=== PATIENT | female | born 1950 | race Caucasian/White ===

== ENCOUNTER → 2016-10-02 | Outpatient (CLI) | payer OTHER ==
[~2016-10-02] MED LIST: ASPI81TA82 PO; CARB200T16 PO; CHOL1CAP6 PO; FEXO180 PO; LISI-360 PO; SIMV10 PO; VITA500C PO; [UNRECOGNIZED DRUG - CODE] PO
[2016-10-02 12:46] LABS: HEMATOCRIT 40.4 % (35.0-46.0); MEAN CELL VOLUME 91.3 FL (80.0-100.0); MEAN CORPUSCULAR HEMOGLOBIN 30.6 PG (27.0-34.0); MEAN CORPUSCULAR HGB CONC 33.5 % (32.0-36.0); PLATELET COUNT 274 TH/MM3 (150-450); RED BLOOD COUNT 4.42 MIL/MM3 (4.00-5.30); RED CELL DISTRIBUTION WIDTH 12.7 % (11.6-17.2); REVIEW FLAG FINAL
[2016-10-02 13:18] LABS: ALKALINE PHOSPHATASE 74 U/L (45-117); ALT (GPT) 19 U/L (10-53); ANION GAP 8 MEQ/L (5-15); AST (GOT) 19 U/L (15-37); BICARBONATE 29.2 MEQ/L (21.0-32.0); BLOOD UREA NITROGEN 11 MG/DL (7-18); CHLORIDE 104 MEQ/L (98-107); GLOMERULAR FILTRATION RATE 95 ML/MIN (>89); GLUCOSE,FASTING 90 MG/DL (74-99); HDL CHOLESTEROL 71.7 MG/DL (40.0-60.0); LDL CHOLESTEROL 115 MG/DL (0-99); POTASSIUM 4.6 MEQ/L (3.5-5.1); SODIUM (NA) 141 MEQ/L (136-145); TOTAL BILIRUBIN ADULT 0.3 MG/DL (0.2-1.0)
== END ==
LOC: PLAB 09:20
PROVIDERS: ATTEND Family Medicine
DX: I10 Essential (primary) hypertension (principal); E78.5 Hyperlipidemia, unspecified; G50.8 Other disorders of trigeminal nerve; I49.1 Atrial premature depolarization
CPT/HCPCS: 80053; 80061; 80156; 84443; 85027

== ENCOUNTER → 2017-02-19 | Outpatient (CLI) | payer OTHER ==
[2017-02-19 13:04] LABS: AUTOMATED NEUTROPHIL # 3.6 TH/MM3 (1.8-7.7); BASOPHIL % 0.5 % (0.0-2.0); EOSINOPHIL # 0.1 TH/MM3 (0-0.4); EOSINOPHIL % 1.4 % (0.0-4.0); HEMATOCRIT 40.2 % (35.0-46.0); HEMO FLAGS DIFF FINAL; LYMPH % 29.3 % (9.0-44.0); LYMPHOCYTE # 1.7 TH/MM3 (1.0-4.8); MEAN CELL VOLUME 91.4 FL (80.0-100.0); MEAN CORPUSCULAR HEMOGLOBIN 30.4 PG (27.0-34.0); MEAN CORPUSCULAR HGB CONC 33.3 % (32.0-36.0); MONO % 6.6 % (0.0-8.0); NEUT % 62.2 % (16.0-70.0); PLATELET COUNT 264 TH/MM3 (150-450); RED CELL DISTRIBUTION WIDTH 12.9 % (11.6-17.2); WHITE BLOOD COUNT 5.9 TH/MM3 (4.0-11.0)
[2017-02-19 13:29] LABS: ALKALINE PHOSPHATASE 76 U/L (45-117); ALT (GPT) 24 U/L (10-53); ANION GAP 7 MEQ/L (5-15); AST (GOT) 22 U/L (15-37); BICARBONATE 26.9 MEQ/L (21.0-32.0); BLOOD UREA NITROGEN 14 MG/DL (7-18); CHLORIDE 105 MEQ/L (98-107); GLOMERULAR FILTRATION RATE 87 ML/MIN (>89); GLUCOSE,FASTING 89 MG/DL (74-99); HDL CHOLESTEROL 69.6 MG/DL (40.0-60.0); LDL CHOLESTEROL 115 MG/DL (0-99); POTASSIUM 4.2 MEQ/L (3.5-5.1); SODIUM (NA) 139 MEQ/L (136-145); TOTAL BILIRUBIN ADULT 0.5 MG/DL (0.2-1.0)
== END ==
LOC: PLAB 09:01
PROVIDERS: ATTEND Family Medicine
DX: G50.8 Other disorders of trigeminal nerve (principal); I10 Essential (primary) hypertension; E78.5 Hyperlipidemia, unspecified
CPT/HCPCS: 36415; 80053; 80061; 80156; 82652; 84443; 85025

== ENCOUNTER → 2017-07-04 | Outpatient (CLI) | payer OTHER ==
[2017-07-04 13:23] LABS: HEMATOCRIT 36.7 % (35.0-46.0); MEAN CELL VOLUME 92.8 FL (80.0-100.0); MEAN CORPUSCULAR HEMOGLOBIN 31.4 PG (27.0-34.0); MEAN CORPUSCULAR HGB CONC 33.9 % (32.0-36.0); PLATELET COUNT 222 TH/MM3 (150-450); RED BLOOD COUNT 3.95 MIL/MM3 (4.00-5.30); RED CELL DISTRIBUTION WIDTH 12.7 % (11.6-17.2); REVIEW FLAG FINAL; WHITE BLOOD COUNT 4.5 TH/MM3 (4.0-11.0)
[2017-07-04 13:28] LABS: ANION GAP 9 MEQ/L (5-15); AST (GOT) 34 U/L (15-37); BICARBONATE 26.8 MEQ/L (21.0-32.0); BLOOD UREA NITROGEN 11 MG/DL (7-18); CHLORIDE 105 MEQ/L (98-107); GLOMERULAR FILTRATION RATE 107 ML/MIN (>89); GLUCOSE,FASTING 80 MG/DL (74-99); SODIUM (NA) 141 MEQ/L (136-145)
[2017-07-04 13:41] LABS: ALKALINE PHOSPHATASE 61 U/L (45-117); ALT (GPT) 33 U/L (10-53); HDL CHOLESTEROL 52.3 MG/DL (40.0-60.0); LDL CHOLESTEROL 78 MG/DL (0-99); TOTAL BILIRUBIN ADULT 0.3 MG/DL (0.2-1.0)
== END ==
LOC: PLAB 09:08
PROVIDERS: ATTEND Family Medicine
DX: I10 Essential (primary) hypertension (principal); E78.5 Hyperlipidemia, unspecified; G50.8 Other disorders of trigeminal nerve; I49.1 Atrial premature depolarization; Z68.27 Body mass index [BMI] 27.0-27.9, adult
CPT/HCPCS: 80053; 80061; 80156; 84443; 85027

== ENCOUNTER → 2017-10-15 | Outpatient (CLI) | payer OTHER ==
[2017-10-15 13:40] LABS: HEMATOCRIT 40.7 % (35.0-46.0); HEMOGLOBIN 13.7 GM/DL (11.6-15.3); MEAN CELL VOLUME 91.6 FL (80.0-100.0); MEAN CORPUSCULAR HEMOGLOBIN 30.7 PG (27.0-34.0); MEAN CORPUSCULAR HGB CONC 33.6 % (32.0-36.0); MEAN PLATELET VOLUME 7.6 FL (7.0-11.0); PLATELET COUNT 273 TH/MM3 (150-450); RED BLOOD COUNT 4.45 MIL/MM3 (4.00-5.30); RED CELL DISTRIBUTION WIDTH 12.9 % (11.6-17.2); WHITE BLOOD COUNT 6.1 TH/MM3 (4.0-11.0)
[2017-10-15 14:00] LABS: AST (GOT) 20 U/L (15-37); BICARBONATE 30.1 MEQ/L (21.0-32.0); BLOOD UREA NITROGEN 11 MG/DL (7-18); CALCIUM 8.5 MG/DL (8.5-10.1); CHLORIDE 104 MEQ/L (98-107); CHOLESTEROL 186 MG/DL (120-200); CREATININE 0.57 MG/DL (0.50-1.00); GLOMERULAR FILTRATION RATE 107 ML/MIN (>89); GLUCOSE,FASTING 79 MG/DL (74-99); SODIUM (NA) 140 MEQ/L (136-145); TRIGLYCERIDES 110 MG/DL (42-150)
[2017-10-15 14:13] LABS: ALKALINE PHOSPHATASE 68 U/L (45-117); ALT (GPT) 22 U/L (10-53); CARBAMAZEPINE (TEGRETOL) 6.2 MCG/ML (4.0-12.0); CHOLESTEROL/ HDL RATIO 2.66 RATIO; HDL CHOLESTEROL 69.8 MG/DL (40.0-60.0); LDL CHOLESTEROL 94 MG/DL (0-99); TOTAL BILIRUBIN ADULT 0.4 MG/DL (0.2-1.0); TOTAL PROTEIN 6.9 GM/DL (6.4-8.2)
== END ==
LOC: PLAB 10:55
PROVIDERS: ATTEND Family Medicine
DX: I10 Essential (primary) hypertension (principal); E78.5 Hyperlipidemia, unspecified; G50.8 Other disorders of trigeminal nerve; I49.1 Atrial premature depolarization; G50.0 Trigeminal neuralgia; Z68.27 Body mass index [BMI] 27.0-27.9, adult
CPT/HCPCS: 36415; 80053; 80061; 80156; 84443; 85027

== ENCOUNTER → 2018-02-06 | Outpatient (CLI) | payer MEDICARE ==
[2018-02-06 13:55] LABS: HEMATOCRIT 39.6 % (35.0-46.0); HEMOGLOBIN 13.4 GM/DL (11.6-15.3); MEAN CELL VOLUME 92.4 FL (80.0-100.0); MEAN CORPUSCULAR HEMOGLOBIN 31.2 PG (27.0-34.0); MEAN CORPUSCULAR HGB CONC 33.8 % (32.0-36.0); MEAN PLATELET VOLUME 7.6 FL (7.0-11.0); PLATELET COUNT 275 TH/MM3 (150-450); RED BLOOD COUNT 4.28 MIL/MM3 (4.00-5.30); RED CELL DISTRIBUTION WIDTH 12.9 % (11.6-17.2); WHITE BLOOD COUNT 5.7 TH/MM3 (4.0-11.0)
[2018-02-06 14:15] LABS: ALKALINE PHOSPHATASE 64 U/L (45-117); CARBAMAZEPINE (TEGRETOL) 5.4 MCG/ML (4.0-12.0); HDL CHOLESTEROL 64.6 MG/DL (40.0-60.0); TOTAL BILIRUBIN ADULT 0.3 MG/DL (0.2-1.0); TOTAL PROTEIN 6.8 GM/DL (6.4-8.2); TRIGLYCERIDES 96 MG/DL (42-150)
[2018-02-06 14:16] LABS: ALBUMIN 3.8 GM/DL (3.4-5.0); ALT (GPT) 22 U/L (10-53); AST (GOT) 29 U/L (15-37); BICARBONATE 26.5 MEQ/L (21.0-32.0); BLOOD UREA NITROGEN 12 MG/DL (7-18); CALCIUM 8.5 MG/DL (8.5-10.1); CHLORIDE 107 MEQ/L (98-107); CHOLESTEROL 181 MG/DL (120-200); CREATININE 0.71 MG/DL (0.50-1.00); GLOMERULAR FILTRATION RATE 83 ML/MIN (>89); GLUCOSE,FASTING 76 MG/DL (74-99); LDL CHOLESTEROL 97 MG/DL (0-99); SODIUM (NA) 143 MEQ/L (136-145)
== END ==
LOC: PLAB 08:54
PROVIDERS: ATTEND Family Medicine
DX: G50.0 Trigeminal neuralgia (principal); I10 Essential (primary) hypertension; E78.5 Hyperlipidemia, unspecified; G50.8 Other disorders of trigeminal nerve; I49.1 Atrial premature depolarization; Z68.25 Body mass index [BMI] 25.0-25.9, adult
CPT/HCPCS: 36415; 80053; 80061; 80156; 84443; 85027